=== PATIENT | male | born 1985 | race African-American/Black ===

== ENCOUNTER 2017-02-07 03:49 | Emergency (ER) | payer OTHER ==
[2017-02-07 04:30] VITALS: BP 123/75; PULSE 87; TEMP 97.9; BMI 27.3
[2017-02-07] MEDS ORDERED: SODIUM CHLORIDE 1,000 ML IV STA (05:29)
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
== END 2017-02-07 06:50 | disposition left against medical advice (07) ==
LOC: JER 03:49
DX: Z53.21 Procedure and treatment not carried out due to patient leaving prior to being seen by health care provider (principal)
CPT/HCPCS: 99282-25

== ENCOUNTER 2017-03-04 09:23 | Inpatient (IN) | payer OTHER ==
[2017-03-04 11:57] VITALS: BMI 25.1
--- NOTE | 2017-03-04 13:26 | HP ---
CIWA Score - CIWA Score Nausea/Vomitin-No Nausea/No Vomiting Muscle Tremors: 4-Moderate,w/Arms Extend Anxiety: 3 Agitation: 4-Moderately Restless Paroxysmal Sweats: 3 Orientation: 0-Oriented Tacttile Disturbances: 0-None Auditory Disturbances: 0-None Visual Disturbances: 0-None Headache: 1-Very Mild CIWA-Ar Total Score: 15 Admission ROS BHS - HPI Chief Complaint: I am here for detox. Allergies/Adverse Reactions: Allergies Allergy/AdvReac Type Severity Reaction Status Date / Time Penicillins Allergy Unknown Verified 03/04/17 12:39 History of Present Illness: pt is a 31yr old male with a history of alcohol dependence seeking detox for treatment. Exam Limitations: No Limitations - Ebola screening Have you traveled outside of the country in the last 21 days: No Have you had contact with anyone from an Ebola affected area: No Have you been sick,other than usual withdrawal symptoms: No Do you have a fever: No - Review of Systems Constitutional: No Symptoms Reported EENT: reports: No Symptoms Reported Respiratory: reports: No Symptoms reported Cardiac: reports: Syncope GI: reports: Poor Appetite, Poor Fluid Intake, Indigestion : reports: No Symptoms Reported Musculoskeletal: reports: Joint Pain Integumentary: reports: Flushing, Sweating Neuro: reports: Tingling, Tremors Endocrine: reports: Excessive Sweating, Flushing, Intolerance to Cold, Intolerance to Heat Hematology: reports: No Symptoms Reported Psychiatric: reports: Judgement Intact, Orientated x3, Agitated, Anxious Other Systems: Reviewed and Negative Patient History - Patient Medical History Hx Anemia: No Hx Asthma: No Hx Chronic Obstructive Pulmonary Disease (COPD): No Hx Cancer: No Hx Cardiac Disorders: No Hx Congestive Heart Failure: No Hx Hypertension: No Hx Hypercholesterolemia: No Hx Pacemaker: No HX Cerebrovascular Accident: No Hx Seizures: No Hx Dementia: No Hx Diabetes: No Hx Gastrointestinal Disorders: No Hx Liver Disease: No Hx Genitourinary Disorders: No Hx Sexually Transmitted Disorders: No Hx Renal Disease (ESRD): No Hx Thyroid Disease: No Hx Human Immunodeficiency Virus (HIV): No (negative) Hx Hepatitis C: No (negive) Hx Depression: No Hx Suicide Attempt: No (denies any S/H ideation today but has had thoughts in the past) Hx Bipolar Disorder: No Hx Schizophrenia: No Other Medical History: pcp use/ have negative - Patient Surgical History Past Surgical History: No Hx Neurologic Surgery: No Hx Cataract Extraction: No Hx Cardiac Surgery: No Hx Lung Surgery: No Hx Breast Surgery: No Hx Breast Biopsy: No Hx Abdominal Surgery: No Hx Appendectomy: No Hx Cholecystectomy: No Hx Genitourinary Surgery: No Hx Section: No Hx Orthopedic Surgery: No Anesthesia Reaction: No - PPD History Previous Implant?: Yes Documented Results: Negative w/o proof Implanted On Prior [facility] Admission?: No PPD to be Administered?: Yes - Reproductive History Patient is a Female of Child Bearing Age (11 -55 yrs old): No - Smoking Cessation Smoking history: Current every day smoker Have you smoked in the past 12 months: Yes Cigars Per Day: 3 Hx Chewing Tobacco Use: No Initiated information on smoking cessation: Yes 'Breaking Loose' booklet given: 03/04/17 - Substance & Tx. History Hx Alcohol Use: Yes Substance Use Type: Alcohol Hx Substance Use Treatment: Yes - Substances Abused Alcohol-vodka/rickey/beer Route: Oral Frequency: Daily Amount used: 3 pts./2-3 ()12 oz.) Age of first use: 14 Date of Last Use: 03/04/17 Family Disease History - Family Disease History Family Disease History: Heart Disease: Mother (stents) Admission Physical Exam BHS - Vital Signs Vital Signs: Vital Signs - 24 hr 03/04/17 11:53 Temperature 97 F L Pulse Rate 82 Respiratory 20 Rate Blood Pressure 117/76 - Physical General Appearance: Yes: Appropriately Dressed, Moderate Distress, Tremorous, Irritable, Sweating, Anxious HEENTM: Yes: Normal Voice Respiratory: Yes: Lungs Clear, Normal Breath Sounds, No Respiratory Distress Neck: Yes: No masses,lesions,Nodules Breast: Yes: Within Normal Limits Cardiology: Yes: Regular Rhythm, Regular Rate, S1, S2 Abdominal: Yes: Normal Bowel Sounds, Non Tender, Soft Genitourinary: Yes: Within Normal Limits Back: Yes: Normal Inspection Musculoskeletal: Yes: Joint Stiffness (right knee) Extremities: Yes: Normal Capillary Refill, Tremors Neurological: Yes: Fully Oriented, Alert, Normal Response Integumentary: Yes: Normal Color, Diaphoresis Lymphatic: Yes: Within Normal Limits - Diagnostic (1) Alcohol dependence with uncomplicated withdrawal Current Visit: Yes Status: Chronic (2) Right knee pain Current Visit: Yes Status: Chronic Qualifiers: Chronicity: chronic Qualified Code(s): M25.561 - Pain in right knee ; G89.29 - Other chronic pain (3) Nicotine dependence Current Visit: Yes Status: Acute (4) Depression Current Visit: Yes Status: Acute Cleared for Admission [facility] - Detox or Rehab [facility] Level of Care: Medically Managed Detox Regimen/Protocol: Librium S Breath Alcohol Content Breath Alcohol Content: 0.149 Urine Drug Screen - Results Drug Screen Negative: No Urine Drug Screen Results: THC-Marijuana
[2017-03-04] MEDS ORDERED: chlordiazePOXIDE HCL 25 MG CAPSULE PO PRN (13:36)
[2017-03-04] MEDS ORDERED: MENTHOL/PHENOL 1 EACH UD MM PRN (13:36)
[2017-03-04] MEDS ORDERED: IBUPROFEN 600 MG TABLET (FP) PO PRN (13:36)
[2017-03-04] MEDS ORDERED: ACETAMINOPHEN 325 MG TABLET (FP) PO PRN (13:36)
[2017-03-04] MEDS ORDERED: diphenhydrAMINE HCL 50 MG CAPSULE PO PRN (13:36)
[2017-03-04] MEDS ORDERED: LOPERAMIDE HCL 2 MG CAPSULE PO PRN (13:36)
[2017-03-04] MEDS ORDERED: P-EPHED 60MG/TRIPROLIDI 2.5MG TABLET PO PRN (13:36)
[2017-03-04] MEDS ORDERED: MAG HYDROX/AL HYDROX/SIMETH 30 ML UNIT-DOSE CUP PO PRN (13:36)
[2017-03-04] MEDS ORDERED: MAGNESIUM HYDROX 2400MG/30ML ORAL SUSPENSION 30 ML CUP PO PRN (13:36)
[2017-03-04] MEDS ORDERED: guaiFENesin/D-METHORPHAN HB 10 ML UNIT-DOSE CUPS PO PRN (13:36)
[2017-03-04] MEDS ORDERED: MAGNESIUM CITRATE 300 ML BOTTLE PO PRN (13:36)
[2017-03-04] MEDS ORDERED: hydrOXYzine PAMOATE 50 MG CAPSULE (FP) PO PRN (13:36)
[2017-03-04] MEDS ORDERED: chlordiazePOXIDE HCL 25 MG CAPSULE PO ONE (13:50)
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
--- NOTE | 2017-03-04 16:13 | EKG ---
Test Reason : Blood Pressure : / mmHG Vent. Rate : 092 BPM Atrial Rate : 092 BPM P-R Int : 156 ms QRS Dur : 086 ms QT Int : 354 ms P-R-T Axes : 074 066 030 degrees QTc Int : 437 ms NORMAL SINUS RHYTHM NORMAL ECG NO PREVIOUS ECGS AVAILABLE Confirmed by IHSAN CAROLINA MD ([id number]) on 03/04/2017 4:12:39 PM Referred By: Confirmed By:IHSAN CAROLINA MD
[2017-03-04] MEDS: chlordiazePOXIDE HCL 25 MG CAPSULE PO SCH ×2 (17:19→22:34)
[2017-03-04 17:55] LABS: HIV 1 & 2 AB NEGATIVE; HIV 1 AGp24 NEGATIVE
[2017-03-04] MEDS: THIAMINE HCL 100 MG TABLET (FP) PO SCH (22:34)
[2017-03-04 23:19] LABS: URINE APPEARANCE CLEAR; URINE BILIRUBIN NEGATIVE (NEGATIVE); URINE BLOOD NEGATIVE (NEGATIVE); URINE COLOR LTYELLOW; URINE GLUCOSE (UA) NEGATIVE (NEGATIVE); URINE KETONE TRACE (NEGATIVE); URINE LEUK ESTERASE NEGATIVE (NEGATIVE); URINE NITRITE NEGATIVE (NEGATIVE); URINE PROTEIN NEGATIVE (NEGATIVE); URINE UROBILINOGEN NEGATIVE E.U./dl (0.2-1.0)
[2017-03-05] MEDS: chlordiazePOXIDE HCL 25 MG CAPSULE PO SCH ×4 (05:42→22:50)
[2017-03-05] MEDS ORDERED: PRENATAL VITAMINS W/ FOLIC ACID TABLET (FP) PO SCH (10:00)
[2017-03-05 10:20] LABS: MCH 32.3 pg (25.7-33.7); MCHC 32.9 g/dl (32.0-35.9); MEAN CELL VOLUME 98.1 fl (80-96); MEAN PLT VOLUME 9.8 fl (7.5-11.1); PLATELET COUNT 215 K/MM3 (134-434); RDW 13.6 % (11.9-15.9); WHITE BLOOD COUNT 10.4 K/mm3 (4.0-10.0)
[2017-03-05 10:44] LABS: ALBUMIN 4.4 g/dl (3.4-5.0); ALK PHOS 73 U/L (45-117); ANION GAP 12 (8-16); BILIRUBIN,TOTAL 0.5 mg/dL (0.2-1.0); CALCIUM 9.4 mg/dL (8.5-10.1); CO2 25 mmol/L (21-32); COCKROFT - GAULT 130.89; CREATININE 0.9 mg/dL (0.7-1.3); GLUCOSE,RANDOM 116 mg/dL (74-106); SGOT/AST 19 U/L (15-37); SGPT/ALT 25 U/L (12-78); TOT PROT 7.7 g/dl (6.4-8.2)
[2017-03-05] MEDS ORDERED: COLLOIDAL OATMEAL 1 BAR EACH TP PRN (12:23)
--- NOTE | 2017-03-05 12:23 | PN ---
S CIWA - CIWA Score Nausea/Vomitin-Mild Nausea/No Vomiting Muscle Tremors: 4-Moderate,w/Arms Extend Anxiety: 3 Agitation: 2 Paroxysmal Sweats: 3 Orientation: 0-Oriented Tacttile Disturbances: 3-Moderate Itch/Numb/Burn Auditory Disturbances: 0-None Visual Disturbances: 0-None Headache: 0-None Present CIWA-Ar Total Score: 16 BHS Progress Note (SOAP) Subjective: Sweating, Tremors. Objective: PT. A & O X 3, OBSERVED AMBULATING ON UNIT. 03/05/17 12:20 Vital Signs Temperature 98.2 F 03/05/17 09:50 Pulse Rate 61 03/05/17 09:50 Respiratory Rate 18 03/05/17 09:50 Blood Pressure 106/69 03/05/17 09:50 O2 Sat by Pulse Oximetry (%) Laboratory Last Values WBC 10.4 K/mm3 (4.0-10.0) H 03/05/17 06:00 RBC 4.39 M/mm3 (4.00-5.60) 03/05/17 06:00 Hgb 14.2 GM/dL (11.7-16.9) 03/05/17 06:00 Hct 43.0 % (35.4-49) 03/05/17 06:00 MCV 98.1 fl (80-96) H 03/05/17 06:00 MCHC 32.9 g/dl (32.0-35.9) 03/05/17 06:00 RDW 13.6 % (11.9-15.9) 03/05/17 06:00 Plt Count 215 K/MM3 (134-434) 03/05/17 06:00 MPV 9.8 fl (7.5-11.1) 03/05/17 06:00 Sodium 141 mmol/L (136-145) 03/05/17 06:00 Potassium 4.2 mmol/L (3.5-5.1) 03/05/17 06:00 Chloride 104 mmol/L (98-107) 03/05/17 06:00 Carbon Dioxide 25 mmol/L (21-32) 03/05/17 06:00 Anion Gap 12 (8-16) 03/05/17 06:00 BUN 17 mg/dL (7-18) 03/05/17 06:00 Creatinine 0.9 mg/dL (0.7-1.3) 03/05/17 06:00 Creat Clearance w eGFR > 60 (>60) 03/05/17 06:00 Random Glucose 116 mg/dL (74-106) H 03/05/17 06:00 Calcium 9.4 mg/dL (8.5-10.1) 03/05/17 06:00 Total Bilirubin 0.5 mg/dL (0.2-1.0) 03/05/17 06:00 AST 19 U/L (15-37) 03/05/17 06:00 ALT 25 U/L (12-78) 03/05/17 06:00 Alkaline Phosphatase 73 U/L (45-117) 03/05/17 06:00 Total Protein 7.7 g/dl (6.4-8.2) 03/05/17 06:00 Albumin 4.4 g/dl (3.4-5.0) 03/05/17 06:00 Urine Color Ltyellow 03/04/17 23:00 Urine Appearance Clear 03/04/17 23:00 Urine pH 5.0 (5.0-8.0) 03/04/17 23:00 Ur Specific [place] 1.025 (1.005-1.025) 03/04/17 23:00 Urine Protein Negative (NEGATIVE) 03/04/17 23:00 Urine Glucose (UA) Negative (NEGATIVE) 03/04/17 23:00 Urine Ketones Trace (NEGATIVE) H 03/04/17 23:00 Urine Blood Negative (NEGATIVE) 03/04/17 23:00 Urine Nitrite Negative (NEGATIVE) 03/04/17 23:00 Urine Bilirubin Negative (NEGATIVE) 03/04/17 23:00 Urine Urobilinogen Negative E.U./dl (0.2-1.0) 03/04/17 23:00 Ur Leukocyte Esterase Negative (NEGATIVE) 03/04/17 23:00 RPR Titer Nonreactive (NONREACTIVE) 03/05/17 06:00 HIV 1&2 Antibody Screen Negative 03/04/17 13:20 HIV P24 Antigen Negative 03/04/17 13:20 LABS NOTED. Assessment: 03/05/17 12:22 WITHDRAWAL SYMPTOMS. Plan: CONTINUE DETOX.
[2017-03-05 22:31] VITALS: BP 109/71; PULSE 74; TEMP 97.8
[2017-03-05] MEDS: THIAMINE HCL 100 MG TABLET (FP) PO SCH (22:50)
--- NOTE | 2017-03-06 00:29 | PN ---
[facility] Progress Note Note: INFORMED CLIENT SIGNING OUT AMA. SPOKE WITH CLIENT WHO IS A/O X3 NAD. 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 HE FEELS CONFINED. HE NO LONGER WANTS TO CONT TXMENT. HE ALSO EXPLAINED THAT HE NEEDED TO LEAVE "NOW". HE LIVES CLOSE AND HAS HIS HOUSE KEYS. RISK IN ABRUPTION IN TXMENT D/W CLIENT. HE VERBALIZED HIS UNDERSTANDING AND INSISTS ON SIGNING OUT AMA. CLIENT IS MEDICALLY STABLE VSS CLIENT SIGNED OUT AMA
--- NOTE | 2017-03-06 00:30 | DS ---
[facility] Detox Discharge Summary Admission Date: 03/04/17 Discharge Date: 03/06/17 - History Present History: Alcohol Dependence, Cannabis Dependence Pertinent Past History: NICOTINE DEPENDENCE - Physical Exam Results Vital Signs: Vital Signs Temperature 97.8 F 03/05/17 22:31 Pulse Rate 74 03/05/17 22:31 Respiratory Rate 18 03/05/17 22:31 Blood Pressure 109/71 03/05/17 22:31 O2 Sat by Pulse Oximetry (%) - Medication Discharge Medications: Ambulatory Orders NK [No Known Home Medication] 02/07/17 - Diagnosis (1) Alcohol dependence with uncomplicated withdrawal Status: Acute (2) Depression Status: Acute (3) Marijuana dependence Status: Acute (4) Nicotine dependence Status: Acute (5) Right knee pain Status: Chronic Qualifiers: Chronicity: chronic Qualified Code(s): M25.561 - Pain in right knee - AMA Did Patient Leave Against Medical Advice: Yes
[2017-03-06] MEDS ORDERED: chlordiazePOXIDE 5 MG CAPSULE PO SCH (17:00)
[2017-03-07] MEDS ORDERED: chlordiazePOXIDE HCL 10 MG CAPSULE PO SCH (17:00)
== END 2017-03-06 00:40 | disposition left against medical advice (07) | DRG 770 ==
LOC: YASAS 09:23 → Y3N 13:30
PROVIDERS: ADMIT Internal Medicine; ATTEND Internal Medicine
PROC: HZ2ZZZZ Detoxification Services for Substance Abuse Treatment (ICD-10-PCS; principal; 2017-03-06)
DX: F10.230 Alcohol dependence with withdrawal, uncomplicated (principal); F12.20 Cannabis dependence, uncomplicated; F17.210 Nicotine dependence, cigarettes, uncomplicated; M25.561 Pain in right knee
CPT/HCPCS: 36415; 80053; 81003; 85027; 86593; 87389; 93005; 93010